=== PATIENT | male | born 1960 | race Caucasian/White ===

== ENCOUNTER 2018-12-18 15:51 | Observation (INO) ==
--- NOTE | 2018-12-18 16:11 | Emergency Department Note ---
Disposition Clinical Impression: Acute focal neurological deficit, Left facial numbness Disposition: Admitted As Inpatient Condition: Good General Adult HPI - General Stated complaint: "I think I had a stroke a couple hours ago" Time Seen by Provider: 12/18/18 16:09 Source: patient Mode of arrival: ambulatory Limitations: no limitations Nursing Notes Reviewed: Yes Vital Signs Reviewed: Yes - History of Present Illness HPI Narrative: Patient presented to the emergency department for evaluation of left-sided facial numbness and concern for mild muscle weakness left face. Patient states symptoms started approximately 1:00 when he had some chest discomfort. He states that he felt something going through his chest on the left side to the back. This has since resolved. Patient now describes left-sided numbness. No other neurologic findings on exam. Stroke alert was activated and patient went to CT. - Related Data Home Medications Medication Instructions Recorded Confirmed RX: Aspirin [Lo-Dose Aspirin EC] 81 mg PO DAILY 11/20/17 12/18/18 RX: Clopidogrel [Plavix] 75 mg PO DAILY 11/20/17 12/18/18 RX: Gabapentin [Neurontin] 800 mg PO TID 11/20/17 12/18/18 RX: Lisinopril [Zestril] 10 mg PO DAILY 11/20/17 12/18/18 RX: Lovastatin [Mevacor] 20 mg PO HS 11/20/17 12/18/18 RX: Metoprolol [Lopressor] 12.5 mg PO BID 11/20/17 12/18/18 RX: Naproxen [Naprosyn] 500 mg PO Q12H PRN 11/20/17 12/18/18 RX: Tamsulosin [Flomax] 0.4 mg PO DAILY 11/20/17 12/18/18 rOPINIRole [Requip] 3 mg PO HS 12/18/18 12/18/18 Allergies Allergy/AdvReac Type Severity Reaction Status Date / Time No Known Allergies Allergy Verified 01/01/18 10:26 All systems ED: reviewed and negative except as stated. Review of Systems: As Per HPI Constitutional: Denies: fever, chills ENT ED: Denies: congestion Cardiovascular: Reports: chest pain Respiratory: Denies: cough, dyspnea Gastrointestinal: Denies: abdominal pain, nausea, vomiting Genitourinary: Reports: other Musculoskeletal: Denies: back pain Integumentary: Denies: rash Neurological: Reports: paresthesias Endocrine: Denies: fatigue Past Medical History - Past Medical History Medical history: Reports: coronary artery disease, hyperlipidemia, hypertension, myocardial infarction Psychiatric history: Reports: no psych history - Social History Smoking Status: Former smoker Smokeless Tobacco Status: No Alcohol use: Reports: none Drug use: Reports: none Physical Exam - General Limitations: no limitations - Head Head exam: atraumatic, normocephalic - Eye Eye exam: Present: normal appearance, PERRL, EOMI. Absent: scleral icterus - ENT ENT exam: normal exam, normal oropharynx - Neck Neck exam: Present: normal inspection - Chest Chest inspection: Present: normal inspection. Absent: symmetric chest wall rise - Respiratory Respiratory exam: Present: normal lung sounds bilaterally. Absent: respiratory distress - Cardiovascular Cardiovascular exam: Present: regular rate, normal rhythm - Abdominal Exam Abdominal exam: Present: soft, Non-Tender - Extremities Exam Extremities exam: Present: normal inspection, full ROM - Back Exam Back exam: Present: normal inspection - Neurological Exam Neurological exam: Present: alert, oriented X3, CN II-XII intact, normal gait - Expanded Neurological Exam Patient oriented to: Present: person, place Speech: Present: fluid speech Cranial nerves: EOM function (II, III, IV, ): Normal, facial sensation (V): Abnormal Left, facial palsy (VII): Abnormal Left, gag reflex (IX): Normal, spinal accessory function (XI): Normal, tongue deviation (XII): Normal Cerebellar function: finger to nose: Normal, heel to palma: Normal Cerebellar function: normal gait Motor strength - LUE: 5/5 Motor strength - RUE: 5/5 Motor strength - LLE: 5/5 Motor strength - RLE: 5/5 Sensory exam upper extremity: light touch: Normal Sensory exam lower extremity: light touch: Normal Coma Scale Eye Opening: Spontaneous Coma Scale Motor Response: Obeys Commands Coma Scale Verbal Response: Oriented Coma Scale Total: 15 Course - Reevaluation(s) Reevaluation #1: Workup negative including CTA. Patient will be given aspirin and admitted for further workup of acute neuro deficit. - Consultations Consultation #1: [facility] neurology evaluated the patient. Patella stroke. Patient not a candidate for TPA given what he described as left-sided arm tingling yesterday as well as low NIH. Patient can be kept our facility for further evaluation. Consultation #2: Discussed the hospitalist. Patient sent for admission. Vital Signs Temperature 99.0 F 12/18/18 16:01 Pulse Rate 71 12/18/18 16:01 Respiratory Rate 16 12/18/18 16:01 Blood Pressure 165/103 12/18/18 16:01 O2 Sat by Pulse Oximetry 97 12/18/18 16:01 Temperature 99.0 F 12/18/18 16:01 Pulse Rate 70 12/18/18 17:45 Respiratory Rate 16 12/18/18 17:45 Blood Pressure 138/84 12/18/18 17:45 O2 Sat by Pulse Oximetry 97 12/18/18 17:45 Oxygen Delivery Oxygen Delivery Room Air Medical Decision Making - Medical Records Medical records reviewed: Yes I reviewed the patient's medical records. - Lab Data Lab results reviewed: Yes I reviewed the patient's lab results. Result diagrams: 12/18/18 16:09 12/18/18 16:09 Lab Results 12/18/18 12/18/18 12/18/18 Range/Units 16:09 16:09 16:09 WBC 9.8 (4.3-11.1) K/mcL RBC 4.50 (4.19-5.50) M/mcL Hgb 13.4 (12.9-16.9) g/dL Hct 38.4 (37.5-50.1) % MCV 85.3 (83.0-100.0) fL MCH 29.8 (28.0-33.3) pg MCHC 34.9 (31.6-35.5) g/dL RDW 13.5 (11.5-14.5) % Plt Count 312 (140-400) K/mcL MPV 9.3 L (9.4-12.4) fL PT 11.4 (9.4-12.1) Seconds INR 1.0 APTT 35.9 (26.0-36.0) Seconds Sodium 140 (136-145) mEq/L Potassium 3.7 (3.5-5.1) mEq/L Chloride 106 (98-107) mEq/L Carbon Dioxide 27 (23-29) mEq/L BUN 10 (6-20) mg/dL Creatinine 0.91 (0.70-1.30) mg/dL Est GFR ( Amer) > 60 (> 60) Est GFR (Non-Af Amer) > 60 (> 60) BUN/Creatinine Ratio 11 (6-26) Glucose 115 H (70-105) mg/dL Calculated Osmolality 290 (280-300) Calcium 9.3 (8.6-10.3) mg/dL Troponin I < 0.03 (< 0.04) ng/mL - Radiology Data Radiology results reviewed: Yes I reviewed the patient's radiology results. - EKG Data EKG #1 EKG attestation: Yes I reviewed and interpreted this EKG. EKG results narrative: EKG shows sinus rhythm with heart is 69 OH 164 QRS 109 QTC 418 patient has flattening of the T waves throughout the anterior leads. No other acute changes from previous of 01/01/18.
[2018-12-18 16:18] LABS: Hematocrit 38.4 % (37.5-50.1); Hemoglobin 13.4 g/dL (12.9-16.9); Mean Corpuscular HGB Conc 34.9 g/dL (31.6-35.5); Mean Corpuscular Hemoglobin 29.8 pg (28.0-33.3); Mean Corpuscular Volume 85.3 fL (83.0-100.0); Mean Platelet Volume 9.3 fL (9.4-12.4); Platelet Count 312 K/mcL (140-400); Red Cell Distribution Width 13.5 % (11.5-14.5)
[2018-12-18 16:25] LABS: Prothrombin Time 11.4 Seconds (9.4-12.1)
[2018-12-18 16:28] LABS: Activated Partial Thrombo Time 35.9 Seconds (26.0-36.0)
[2018-12-18 16:41] LABS: BUN/Creatinine Ratio 11 (6-26); Blood Urea Nitrogen 10 mg/dL (6-20); Calcium 9.3 mg/dL (8.6-10.3); Carbon Dioxide 27 mEq/L (23-29); Chloride 106 mEq/L (98-107); Glucose 115 mg/dL (70-105); Osmolality,Calculated 290 (280-300); Potassium 3.7 mEq/L (3.5-5.1); Sodium 140 mEq/L (136-145); eGFR For Non-African Americans > 60 (> 60)
[2018-12-18 16:42] LABS: Troponin I < 0.03 ng/mL (< 0.04)
[2018-12-18] MEDS ORDERED: Isovue-370 500 ML BOTTLE IVP ONE (16:55)
[2018-12-18] MEDS ORDERED: Aspirin 325 MG TABLET PO SCH (18:30)
--- NOTE | 2018-12-18 19:39 | Internal Med History&Physical ---
Date of Encounter: 12/18/18 Time of Encounter: 19:37 Internal Medicine - H&P: HPI Chief complaint: Left sided facial numbness History of present illness: Mr. Wise is a 58 year old male with a past medical history of hypertension, hyperlipidemia, coronary artery disease status post stents, and restless leg syndrome who presented to the ED due to left-sided facial numbness. Patient states he was in his usual state of health and was watching TV when he developed a sudden sensation in his chest which he described as a clot traveling in his heart. About 8 minutes later patient stated he noted left-sided facial numbness. Patient states that last night he had left upper extremity numbness and weakness which then proceeded to the right side as well. Patient otherwise denies any recent changes in medication. He does state that he had a upper respiratory tract infection about a week prior. On arrival patient was found to be afebrile, mildly hypertensive. Stroke alert was called and the patient was evaluated by [facility] neurology. CTA of the head and neck was performed which showed no acute abnormalities. Patient was deemed not a candidate for TPA given re ports of neurological changes the day prior as well. On my assessment, patient states that he still has residual tingling in the left side of his face and mouth. He also appeared to have a mild left-sided facial droop which the patient also noted as well. For stroke workup. Past Med Surg Social Fam HX - Past Medical History Medical history: coronary artery disease, hyperlipidemia, hypertension, myocardial infarction Psychiatric history: no psych history - Past Surgical History Additional surgical history: 3 cardiac stents. right partial second digit amputation - Social History Smoking Status: Former smoker Smokeless Tobacco Status: No Alcohol use: none Drug use: none - Family History Father Living Status: Hx Family Cardiac Disorders: Yes ([place]) Internal Medicine - H&P: Meds Aspirin [Lo-Dose Aspirin EC] 81 mg PO DAILY 11/20/17 [History] Clopidogrel [Plavix] 75 mg PO DAILY 11/20/17 [History] Gabapentin [Neurontin] 800 mg PO TID 11/20/17 [History] Lisinopril [Zestril] 10 mg PO DAILY 11/20/17 [History] Lovastatin [Mevacor] 20 mg PO HS 11/20/17 [History] Metoprolol [Lopressor] 12.5 mg PO BID 11/20/17 [History] Naproxen [Naprosyn] 500 mg PO Q12H PRN 11/20/17 [History] Tamsulosin [Flomax] 0.4 mg PO DAILY 11/20/17 [History] rOPINIRole [Requip] 3 mg PO HS 12/18/18 [History] Allergy/AdvReac Type Severity Reaction Status Date / Time No Known Allergies Allergy Verified 01/01/18 10:26 All Systems PM: A 10-system review of systems was performed and is negative for pertinent findings except as documented above in the HPI. - Constitutional Constitutional: no chills, no fever(s), no night sweats - EENT Eyes: no change in vision, no discharge, no pain, no photophobia Ears: no ear discharge, no ear pain, no tinnitus Nose, mouth and throat: no dysphagia, no nasal discharge, no neck pain, no sore throat - Cardiovascular Cardiovascular ROS IM: no chest pain, no diaphoresis, no dyspnea, no lightheadedness, no palpitations, no syncope - Respiratory Respiratory: no cough, no dyspnea, no wheezing, no excessive phlegm production - Gastrointestinal Gastrointestinal: no abdominal pain, no diarrhea, no hematemesis, no hematochezia, no melena, no nausea, no vomiting - Musculoskeletal Musculoskeletal ROS IM: no numbness, no tingling - Integumentary Integumentary IM: no rash, no unusual bruising - Neurological Neurological ROS: no confusion, no convulsions, no focal weakness, no numbness, no tingling, no tremor(s) - Hematologic/Lymphatic Hematologic/Lymphatic: no easy bruising - Constitutional Vitals: Temp Pulse Resp BP Pulse Ox 99.0 F 70 16 138/84 97 12/18/18 16:01 12/18/18 17:45 12/18/18 17:45 12/18/18 17:45 12/18/18 17:45 Exam: General: Alert and oriented 3 Skin:Normal color, no rash, no lesions. HEENT:EOM, pupils equal, round and reactive. Cardiovascular:Normal S1 & S2, no rubs, murmurs or gallops. No JVD. Pulse regular. Lungs:Normal breath sounds, no wheezes or crackles. Abdomen:Soft, non-tender, no rigidity. Extremities:No deformity, no edema or tenderness, no joint swelling or clubbing. Neurological:Normal cognition and motor skills. Cranial nerves II through XII intact. Muscle strength in the upper and lower extremities 5 out of 5 b ilaterally. Sensation intact throughout. No evidence of pronator drift. No dysmetria. Pulses:Carotid and radial pulses normal +2. Rest of the physical exam is non contributory Internal Med - H&P Results - Labs CBC & Chem 7: 12/18/18 16:09 12/19/18 04:05 Labs: Short CBC 12/18/18 Range/Units 16:09 WBC 9.8 (4.3-11.1) K/mcL Hgb 13.4 (12.9-16.9) g/dL Hct 38.4 (37.5-50.1) % Plt Count 312 (140-400) K/mcL BMP 12/18/18 16:09 Sodium 140 Potassium 3.7 Chloride 106 Carbon Dioxide 27 BUN 10 Creatinine 0.91 Glucose 115 H Calcium 9.3 Cardiac Enzymes 12/18/18 Range/Units 16:09 Troponin I < 0.03 (< 0.04) ng/mL - Impressions ITS Impressions Head CT 12/18/18 16:11 IMPRESSION: No acute intracranial abnormality. Findings were discussed with Virgil Roe MD at 4:25 pm on 12/18/2018. D/ / Blane Byrne MD / Blane Byrne MD Interpreting Provider: Blane Byrne MD Chest X-Ray 12/18/18 16:40 IMPRESSION: No acute process. D/ / Anjel Faustin MD / Anjel Faustin MD Interpreting Provider: Anjel Faustin MD Head CTA 12/18/18 16:55 IMPRESSION: No high-grade stenosis or focal occlusion involving the intracranial or cervical vasculature. No evidence of acute dissection. No evidence of aneurysm. D/ / 12/18/2018 17:43:17 David Lopez MD / jessie Interpreting Provider: David Lopez MD Neck CTA 12/18/18 16:55 IMPRESSION: No high-grade stenosis or focal occlusion involving the intracranial or cervical vasculature. No evidence of acute dissection. No evidence of aneurysm. D/ / 12/18/2018 17:43:17 David Lopez MD / jessie Interpreting Provider: David Lopez MD - Assessment and Plan (1) Left facial numbness Status: Acute Assessment and plan: Patient presents with left-sided facial numbness which began around 1 PM this afternoon while the patient was sitting and watching TV. Patient also reports numbness and weakness in the upper extremities sequentially yesterday as well. Patient has risk factors for stroke including hypertension, hyperlipidemia, history of coronary artery disease and family history of stroke. Patient was out of the TPA window after dilation by [facility] neurology. Patient still reporting some numbness and tingling on the left side of the face. Mild left-sided facial droop also noted. Vision received loading dose of aspirin in the ED. -We will allow for permissive hypertension -Serial neurologic exams -Echo cardiogram and carotid duplex in the morning -We will obtain MRI without contrast in the morning -Consult to neurology. (2) Hypertension Status: Acute Assessment and plan: History of hypertension. We will hold antihypertensives overnight to allow for permissive hypertension. Qualifiers: Hypertension type: unspecified Qualified Code(s): I10 - Essential (primary) hypertension (3) Coronary artery disease Status: Acute Assessment and plan: History of coronary artery disease status post stents. EKG and troponin were unremarkable. Patient has no active chest pain at this time. We will resume statin and hold beta trevor for tonight. Qualifiers: Coronary Disease-Associated Artery/Lesion type: [place] artery [place] vs. transplanted heart: [place] heart Associated angina: without angina Qualified Code(s): I25.10 - Atherosclerotic heart disease of [place] coronary artery without angina pectoris (4) Hyperlipidemia Status: Acute Assessment and plan: Continue with statin Qualifiers: Hyperlipidemia type: unspecified Qualified Code(s): E78.5 - Hyperlipidemia, unspecified (5) Restless leg syndrome Status: Acute Assessment and plan: Patient adamant about receiving his gabapentin tonight for his restless leg syndrome otherwise he cannot sleep. Case discussed with Dr. Chavez with neurology who was fine with continuing the patient's medications. (6) DVT prophylaxis Status: Acute Assessment and plan: Subcutaneous cutaneous heparin - Time Spent With Patient Total time spent is greater than 50% in coordination of care (as documented) at patient's floor/unit and/or counseling patient:
[2018-12-18] MEDS: Gabapentin 400 MG CAPSULE PO SCH (20:54)
[2018-12-19 05:01] LABS: INR 1.1; Prothrombin Time 12.1 Seconds (9.4-12.1)
[2018-12-19 05:12] LABS: Alanine Aminotransferase 15 Units/L (7-52); Albumin/Globulin Ratio 1.8 (1.1-2.2); Alkaline Phosphatase 52 Units/L (34-104); Aspartate Amino Transferase 13 Units/L (13-39); BUN/Creatinine Ratio 11 (6-26); Bilirubin,Total 0.4 mg/dL (0.3-1.0); Blood Urea Nitrogen 9 mg/dL (6-20); Carbon Dioxide 25 mEq/L (23-29); Chloride 108 mEq/L (98-107); Cholesterol 149 mg/dL (< 200); Globulin 2.2 g/dL (2.4-3.5); Glucose 108 mg/dL (70-105); HDL Cholesterol 30 mg/dL (40-59); LDL Cholesterol,Calculated 102 mg/dL (0-99); Osmolality,Calculated 287 (280-300); Potassium 3.6 mEq/L (3.5-5.1); Sodium 139 mEq/L (136-145); Total Protein 6.2 g/dL (6.4-8.9); Triglycerides 86 mg/dL (< 150); Troponin I < 0.03 ng/mL (< 0.04); eGFR For Non-African Americans > 60 (> 60)
[2018-12-19 07:15] LABS: Estimated Average Glucose 131 mg/dl; Hemoglobin A1C 6.2 %
[2018-12-19] MEDS: Gabapentin 400 MG CAPSULE PO SCH (07:54)
[2018-12-19] MEDS ORDERED: Aspirin Enteric Coated 81 MG Tablet PO SCH (09:00)
--- NOTE | 2018-12-19 10:34 | Internal Med Progress Note ---
Hospitalist Progress Note - Encounter Date of Encounter: 12/19/18 Time of Encounter: 10:34 - Exam Vitals: Temp Pulse Resp BP Pulse Ox 98.0 F 58 14 133/79 98 12/19/18 07:13 12/19/18 07:13 12/19/18 07:13 12/19/18 07:13 12/19/18 07:13 - Assessment and Plan (1) Left facial numbness Current Visit: Yes Status: Acute (2) Coronary artery disease Current Visit: Yes Status: Acute (3) Hypertension Current Visit: Yes Status: Acute (4) Hyperlipidemia Current Visit: Yes Status: Acute (5) DVT prophylaxis Current Visit: Yes Status: Acute (6) Restless leg syndrome Current Visit: Yes Status: Acute - Time Spent with Patient Total time spent is greater than 50% in coordination of care (as documented) at patient's floor/unit and/or counseling patient: Internal Medicine: Result - Labs CBC & Chem 7: 12/18/18 16:09 12/19/18 04:05 Labs: Short CBC 12/18/18 Range/Units 16:09 WBC 9.8 (4.3-11.1) K/mcL Hgb 13.4 (12.9-16.9) g/dL Hct 38.4 (37.5-50.1) % Plt Count 312 (140-400) K/mcL BMP 12/18/18 12/19/18 16:09 04:05 Sodium 140 139 Potassium 3.7 3.6 Chloride 106 108 H Carbon Dioxide 27 25 BUN 10 9 Creatinine 0.91 0.83 Glucose 115 H 108 H Calcium 9.3 9.0 Cardiac Enzymes 12/18/18 12/19/18 Range/Units 16:09 04:05 Troponin I < 0.03 < 0.03 (< 0.04) ng/mL Liver Function 12/19/18 Range/Units 04:05 Total Bilirubin 0.4 (0.3-1.0) mg/dL AST 13 (13-39) Units/L ALT 15 (7-52) Units/L Alkaline Phosphatase 52 (34-104) Units/L Albumin 4.0 (3.5-5.7) g/dL - ABG Interpretation ABG results: PT/INR, D-dimer PT 12.1 Seconds (9.4-12.1) 12/19/18 04:05 - Impressions Impressions Head CT 12/18/18 16:11 IMPRESSION: No acute intracranial abnormality. Findings were discussed with Virgil Roe MD at 4:25 pm on 12/18/2018. D/ / Blane Byrne MD / Blane Byrne MD Interpreting Provider: Blane Byrne MD Chest X-Ray 12/18/18 16:40 IMPRESSION: No acute process. D/ / Anjel Faustin MD / Anjel Faustin MD Interpreting Provider: Anjel Faustin MD Head CTA 12/18/18 16:55 IMPRESSION: No high-grade stenosis or focal occlusion involving the intracranial or cervical vasculature. No evidence of acute dissection. No evidence of aneurysm. D/ / 12/18/2018 17:43:17 David Lopez MD / jessie Interpreting Provider: David Lopez MD Neck CTA 12/18/18 16:55 IMPRESSION: No high-grade stenosis or focal occlusion involving the intracranial or cervical vasculature. No evidence of acute dissection. No evidence of aneurysm. D/ / 12/18/2018 17:43:17 David Lopez MD / jessie Interpreting Provider: David Lopez MD Consult Discharge Plan - Plan
[2018-12-19 10:59] VITALS: BP 173/105
--- NOTE | 2018-12-19 11:46 | Neurology - Consult Note ---
Date of Encounter: 12/19/18 Time of Encounter: 11:44 Assessment and Plan (1) Left facial numbness Current Visit: Yes Status: Acute Patient with multiple risk factors for CVA/TIA with HTN, HLD and CAD who developed chest pain with left facial numbness, > 24 hours in duration concerning for lacunar infarct vs TIA therefore he does need MRI of brain witho ut contrast to confirm diagnosis. CTA of neck and head showed no flow limiting major cerebral artery stenosis. Patient's symptoms rapidly improved. No focal weakness is present. He is eager to do home but agrees that he would complete the studies, in particular, Echocardiography and MRI of brain as an outpatient. Continue aspirin 81mg and plavix 75mg daily. Keep on statin therapy. Okay to discharge home from neurology perspective. Patient is to follow up in neurology in 1-2 weeks. History of Present Illness Chief complaint: left facial numbness HPI: Mr. Wise is a 58 year old male with PMH significant for HTN, obesity, HLD, CAD, RLS, history of [place] who developed acute onset of left facial numbness and chest pain. initially started feeling facial numbness and weakness associated with chest pain and by the time he went to ER he reports left sided numbness, so he was admitted for work up for possible stroke or TIA. Does have previous history of [place] and CAD. CT of head initially was normal. Determined by [facility] telemetry not a candidate for rPA thrombolysis. Overnight he has been feeling fine. At the time of this interview, he feels fine and may be slight facial numbness but certainly no facial weakness. Wanted to go home against medical advice. Agree to get an MRI of brain and echo as an outpatient. Currently taking a combination of aspirin and Plavix. and on statin therapy. Past Med Surg Social Fam HX - Past Medical History Medical history: coronary artery disease, hyperlipidemia, hypertension, myocardial infarction Psychiatric history: no psych history - Past Surgical History Additional surgical history: 3 cardiac stents. right partial second digit amputation - Social History Smoking Status: Former smoker Packs per day: >1 Smokeless Tobacco Status: No Alcohol use: none Drug use: none - Family History Father Living Status: Hx Family Cardiac Disorders: Yes ([place]) Medications and Allergies Aspirin [Lo-Dose Aspirin EC] 81 mg PO DAILY 11/20/17 [History] Clopidogrel [Plavix] 75 mg PO DAILY 11/20/17 [History] Gabapentin [Neurontin] 800 mg PO TID 11/20/17 [History] Lisinopril [Zestril] 10 mg PO DAILY 11/20/17 [History] Lovastatin [Mevacor] 20 mg PO HS 11/20/17 [History] Metoprolol [Lopressor] 12.5 mg PO BID 11/20/17 [History] Naproxen [Naprosyn] 500 mg PO Q12H PRN 11/20/17 [History] Tamsulosin [Flomax] 0.4 mg PO DAILY 11/20/17 [History] rOPINIRole [Requip] 3 mg PO HS 12/18/18 [History] Allergy/AdvReac Type Severity Reaction Status Date / Time No Known Allergies Allergy Verified 01/01/18 10:26 All Systems: The remainder of the systems were reviewed and are negative Physical Examination - Vital Signs Vital Signs: Initial Vital Signs Temp Pulse Resp BP Pulse Ox 99.0 F 71 16 165/103 97 12/18/18 16:01 12/18/18 16:01 12/18/18 16:01 12/18/18 16:01 12/18/18 16:01 - Constitutional General appearance: comfortable - Neurologic Detailed motor examination: full strength in all major muscle groups Motor examination - right side: 5/5: deltoids, biceps, triceps, wrist flexion, wrist extension, cleaner housekeeping, hip flexors, tibialis Anterior, quadriceps, toe extension (EHL), plantarflexion Motor examination - left side: 5/5: deltoids, biceps, triceps, wrist flexion, wrist extension, hip flexors, cleaner housekeeping, quadriceps, tibialis Anterior, toe extension (EHL), plantarflexion Reflexes: Biceps: 2+, Triceps: 2+, Brachioradialis: 2+, Patella: 2+, Achilles: 2+ Mental Status Examination: awake, alert, oriented to person, oriented to place, oriented to time, follows commands appropriately, answers questions appropriately, no agnosia, no aphasia, no aproxia Cranial nerve examination: PERRL, EOMI, visual [place] intact, corneal reflexes brisk symmetrically, sensory to face intact, mastication intact, no facial asymmetry is present, no dysarthria, hearing is intact symmetrically, soft palate elevates bilaterally upon phonation, gag reflex intact, flexes SCM and trapezius muscles symmetrically with full power, tongue protrudes midline, no atrophy or facial fasiculations present Cerebellar examination: no dysmetria, performs finger to nose and heel to palma symmetrically without ataxia, no gait ataxia, no truncal ataxia, no difficulty with rapid alternating movements Results - Laboratory Findings CBC and BMP: 12/18/18 16:09 12/19/18 04:05 Abnormal lab findings: Abnormal lab results MPV 9.3 fL (9.4-12.4) L 12/18/18 16:09 Chloride 108 mEq/L (98-107) H 12/19/18 04:05 Glucose 108 mg/dL (70-105) H 12/19/18 04:05 POC Glucose 106 mg/dL (70-99) H 12/19/18 00:06 Hemoglobin A1c 6.2 % (-5.6) H 12/19/18 04:05 Serum Total Protein 6.2 g/dL (6.4-8.9) L 12/19/18 04:05 Globulin 2.2 g/dL (2.4-3.5) L 12/19/18 04:05 LDL Cholesterol, Calc 102 mg/dL (0-99) H 12/19/18 04:05 HDL Cholesterol 30 mg/dL (40-59) L 12/19/18 04:05 Cholesterol/HDL Ratio 5.0 (0-4.9) H 12/19/18 04:05 - Diagnostic Findings Additional findings: CTA OF THE HEAD WITHOUT AND WITH CONTRAST; CTA OF THE NECK 12/18/2018 5:17 pm; 12/18/2018 5:16 pm: TECHNIQUE: CTA of the head/brain was performed without and with the administration of intravenous contrast. Multiplanar reformatted images are provided for review. MIP images are provided for review. Dose modulation, iterative reconstruction, and/or weight based adjustment of the mA/kV was utilized to reduce the radiation dose to as low as reasonably achievable.; CTA of the neck was performed with the administration of intravenous contrast. Multiplanar reformatted images are provided for review. MIP images are provided for review. Stenosis of the internal carotid arteries measured using NASCET criteria. Dose modulation, iterative reconstruction, and/or weight based adjustment of the mA/kV was utilized to reduce the radiation dose to as low as reasonably achievable. COMPARISON: CT of the head on 12/18/2018. HISTORY: ORDERING SYSTEM PROVIDED HISTORY: left sided face numbness FINDINGS: CTA NECK: AORTIC ARCH/ARCH VESSELS: No significant stenosis is seen of the innominate artery or subclavian arteries. CAROTID ARTERIES: The common carotid arteries are normal in appearance without evidence of a flow limiting stenosis. The internal carotid arteries are normal in appearance without evidence of a flow limiting stenosis by NASCET criteria. No dissection or arterial injury is seen. VERTEBRAL ARTERIES: The vertebral arteries both arise from the subclavian arteries and are normal in caliber without evidence of flow limiting stenosis or dissection. SOFT TISSUES: The lung apices are clear. No evidence of superior mediastinal lymphadenopathy. The nasopharynx, oral cavity, oropharynx hypopharynx, and laryngeal structures are unremarkable. The parotid glands, and submandibular glands are unremarkable. No significant cervical lymphadenopathy is identified by size criteria. No evidence of significant supraclavicular lymphadenopathy. No acute findings within soft tissue neck. Retention cyst within right maxillary sinus. BONES: Multilevel degenerative changes of the cervical spine. No gross evidence of acute abnormality within cervical spine. CTA HEAD: ANTERIOR CIRCULATION: Mild atherosclerotic disease involving the intracranial internal carotid arteries. No flow-limiting stenosis. The anterior cerebral and middle cerebral arteries demonstrate no focal stenosis. POSTERIOR CIRCULATION: The posterior cerebral arteries demonstrate no focal stenosis. The vertebral and basilar arteries appear unremarkable. BRAIN: No mass effect or midline shift. No abnormal extra-axial fluid collection. The hernandez-white differentiation appears grossly maintained. CT/CT angio head IMPRESSION: No high-grade stenosis or focal occlusion involving the intracranial or cervical vasculature. No evidence of acute dissection. No evidence of aneurysm. D/ / 12/18/2018 17:43:17 David Lopez MD / jessie Interpreting Provider: David Lopez MD EXAMINATION: CT OF THE HEAD WITHOUT CONTRAST - STROKE ALERT 12/18/2018 4:14 pm TECHNIQUE: CT of the head was performed without the administration of intravenous contrast. Dose modulation, iterative reconstruction, and/or weight based adjustment of the mA/kV was utilized to reduce the radiation dose to as low as reasonably achievable. COMPARISON: CT head January 01, 2018 HISTORY: ORDERING SYSTEM PROVIDED HISTORY: stroke alert FINDINGS: BRAIN/VENTRICLES: There is no acute intracranial hemorrhage, mass effect or midline shift. No abnormal extra-axial fluid collection. The hernandez-white differentiation is maintained without evidence of an acute infarct. There is no evidence of hydrocephalus. ORBITS: The visualized portion of the orbits demonstrate no acute abnormality. SINUSES: The visualized paranasal sinuses and mastoid air cells demonstrate a polyp versus mucous retention cyst within the right maxillary sinus similar to previous exam. SOFT TISSUES/SKULL: No acute abnormality of the visualized skull or soft tissues. CT/CT stroke alert head wo con IMPRESSION: No acute intracranial abnormality. Findings were discussed with Virgil Roe MD at 4:25 pm on 12/18/2018. D/ / Blane Byrne MD / Blane Byrne MD Interpreting Provider: Blane Byren MD Consult Discharge Plan - Plan Referrals: Dallas Le MD [Primary Care Provider] -
--- NOTE | 2018-12-19 14:37 | Discharge Summary ---
- NOTES TO OUTPATIENT PROVIDER Notes to Outpatient Provider: Patient will follow up with neurology will require MRI as outpatient he did not complete further workup and left AGAINST MEDICAL ADVICE Orders not resulted at time of discharge: Pending orders 12/18/18 17:03 ECG 12 lead ECG [ECG] Stat 12/18/18 19:36 MR head/brain wo con [MR] Routine Date of Encounter: 12/19/18 Time of Encounter: 11:00 - Discharge Diagnosis (1) Left facial numbness Priority: Primary Status: Acute (2) Coronary artery disease Priority: Secondary Status: Acute Qualifiers: Coronary Disease-Associated Artery/Lesion type: [place] artery [place] vs. transplanted heart: [place] heart Associated angina: without angina Qualified Code(s): I25.10 - Atherosclerotic heart disease of [place] coronary artery without angina pectoris (3) Hypertension Priority: Secondary Status: Acute Qualifiers: Hypertension type: unspecified Qualified Code(s): I10 - Essential (primary) hypertension (4) Hyperlipidemia Priority: Secondary Status: Acute Qualifiers: Hyperlipidemia type: unspecified Qualified Code(s): E78.5 - Hyperlipidemia, unspecified (5) Restless leg syndrome Priority: Secondary Status: Acute Hospital course: Mr. Wise is a 58 year old male past medical history of hypertension obesity hyperlipidemia CAD with stent placements presented to [facility] ED after experiencing left facial numbness and chest pain initially started feeling numbness and weakness associated with chest pain and by the time he went to the ER reports left-sided numbness. On presentation to the ER he was evaluated by [facility] telemetry overnight candidate for r-PA thrombolysis. CT of head was normal. CTA of head and neck showed no flow-limiting major cerebral artery stenosis. Symptoms have resolved and has returned back to his baseline. No focal weakness patient is eager to go home-advised patient to stay and be evaluated by neurology as well as complete MRI and echo. I did explain the risk of leaving AGAINST MEDICAL ADVICE including stroke and possible patient verbalized understanding Patient was evaluated by neurology echo was completed however patient left before MRI could be completed. Patient was advised to follow-up with neurology as outpatient as well as return if any symptoms worsened. Patient has left AGAINST MEDICAL ADVICE - Time Spent with Patient Total time spent providing and/or coordinating discharge services: - Discharge Medications Prescriptions: No Action Tamsulosin [Flomax] 0.4 mg PO DAILY Naproxen [Naprosyn] 500 mg PO Q12H PRN PRN Reason: Pain Aspirin [Lo-Dose Aspirin EC] 81 mg PO DAILY Metoprolol [Lopressor] 12.5 mg PO BID Lovastatin [Mevacor] 20 mg PO HS Lisinopril [Zestril] 10 mg PO DAILY Gabapentin [Neurontin] 800 mg PO TID Clopidogrel [Plavix] 75 mg PO DAILY rOPINIRole [Requip] 3 mg PO HS Home Medications: Aspirin [Lo-Dose Aspirin EC] 81 mg PO DAILY 11/20/17 [History] Clopidogrel [Plavix] 75 mg PO DAILY 11/20/17 [History] Gabapentin [Neurontin] 800 mg PO TID 11/20/17 [History] Lisinopril [Zestril] 10 mg PO DAILY 11/20/17 [History] Lovastatin [Mevacor] 20 mg PO HS 11/20/17 [History] Metoprolol [Lopressor] 12.5 mg PO BID 11/20/17 [History] Naproxen [Naprosyn] 500 mg PO Q12H PRN 11/20/17 [History] Tamsulosin [Flomax] 0.4 mg PO DAILY 11/20/17 [History] rOPINIRole [Requip] 3 mg PO HS 12/18/18 [History] Allergies/Adverse Reactions: Allergy/AdvReac Type Severity Reaction Status Date / Time No Known Allergies Allergy Verified 01/01/18 10:26 Date of admission: 12/18/18 18:47 Primary care physician: Dallas Le MD Consults: 12/18/18 19:29 Consult for Pharmacy Education [CONS] Stat Reason for Consult: CVA/TIA Call Completed: No Consult to Neurology [CONS] Routine Consulting Provider: Neurology [facility] Reason for Consult: CVA/TIA Call Completed: No Consult to Occupational Therapy [CONS] Routine Comment: Evaluate, develop and implement POC Reason for Consult: CVA/TIA Does patient have active BEDREST order?: No Is patient medically & hemodynamically stable?: Yes Consult to Physical Therapy [CONS] Routine Comment: Evaluate, develop and implement POC Reason for Consult: CVA/TIA Does patient have active BEDREST order?: No Is patient medically & hemodynamically stable?: Yes Consult to Resource Coordinator [CONS] Routine Reason for SW Consult: CVA/TIA - Constitutional Vitals: Temp Pulse Resp BP Pulse Ox 98.0 F 67 15 173/105 99 12/19/18 10:53 12/19/18 10:53 12/19/18 10:53 12/19/18 10:53 12/19/18 10:53 Exam: General: Alert and oriented 3 Skin:Normal color, no rash, no lesions. HEENT:EOM, pupils equal, round and reactive. Cardiovascular:Normal S1 & S2, no rubs, murmurs or gallops. No JVD. Pulse regular. Lungs:Normal breath sounds, no wheezes or crackles. Abdomen:Soft, non-tender, no rigidity. Extremities:No deformity, no edema or tenderness, no joint swelling or clubbing. Neurological:Normal cognition and motor skills. Cranial nerves II through XII intact. Muscle strength in the upper and lower extremities 5 out of 5 bilaterally. Sensation intact throughout. No evidence of pronator drift. No dysmetria. Pulses:Carotid and radial pulses normal +2. Rest of the physical exam is non contributory - Patient Status Disposition: Left Against Medical Advice Condition: Good - Discharge Instructions Follow Up With: Dallas Le MD [Primary Care Provider] - Forms: ED Satisfaction Letter
--- NOTE | 2018-12-20 19:06 | Electrocardiograph Report ---
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
== END 2018-12-19 13:15 | disposition left against medical advice (07) ==
LOC: EMEROOARM 15:51 → 3BNU 15:51
PROVIDERS: ADMIT Internal Medicine; ATTEND Internal Medicine